=== PATIENT | male | born 1970 | race Two or more races ===

== ENCOUNTER 2016-08-25 18:37 | Emergency (ER) | payer OTHER ==
--- NOTE | ~2016-08-25 | CR72 ---
[facility] A Service of [facility] RADIOLOGY TEXT RESULTS PATIENT: ROBERTO SINGH LOCATION: [facility] : 68 UNIT #: [id number] AGE: [address]: Skip Brown MD SEX: M ORDER DR: [id number] [facility] [address] [place], [place] [address] [id number] MR#: [id number] Acc #: [id number] NAME: ROBERTO SINGH : 1970 SEX: M STUDY DATE/TIME: 08/25/2016 19:57 UNIT: [facility] ROOM: STUDY DESCRIPTION: CR Chest Single View Portable Attending Physician: Skip Brown M.D. Ordering Physician: Skip Brown M.D. Primary Care Physician: Primary Care Physician No MEDICAL IMAGING REPORT This report is preliminary unless electronic signature is present EXAM Portable AP view of the chest COMPARISON None. INDICATION 46-year-old male with chest pain and mild chest congestion for 3 days. FINDINGS Cardiomediastinal silhouette is normal. No evidence of pneumothorax, pleural effusion or acute airspace disease. IMPRESSION No acute radiographic abnormality. Dictated by... Nikolas Thompson M.D. THIS IS AN ELECTRONICALLY VERIFIED REPORT Nikolas Thompson M.D. at 08/26/2016 3:03 PM Fannie TD: 08/26/2016 00:16 JOB #: [id number] MEDICAL IMAGING REPORT Page 1 of 1 COPY
--- NOTE | ~2016-08-25 | CT71 ---
[facility] A Service of [facility] RADIOLOGY TEXT RESULTS PATIENT: ROBERTO SINGH LOCATION: [facility] : 68 UNIT #: [id number] AGE: [address]: Skip Brown MD SEX: M ORDER DR: [id number] [facility] [address] [place], [place] [address] [id number] E MR#: [id number] Acc #: [id number] NAME: ROBERTO SINGH : 1970 SEX: M STUDY DATE/TIME: 08/25/2016 20:21 UNIT: [facility] ROOM: STUDY DESCRIPTION: CT Head Wo Contrast Attending Physician: Skip Brown M.D. Ordering Physician: Skip Brown M.D. Primary Care Physician: Primary Care Physician No MEDICAL IMAGING REPORT This report is preliminary unless electronic signature is present EXAM CT brain without contrast HISTORY Seizure today. Found down. Weakness. This CT exam was performed with one or more of the following radiation dose reduction techniques: automatic exposure control, adjustment of mA and/or kV according to patient size, and iterative reconstruction. FINDINGS Axial noncontrast images were obtained from the skull base to the vertex. Ventricular size and configuration are normal. There is no evidence of acute infarct or hemorrhage. There are no extra-axial fluid collections. No mass lesion or mass effect is seen. There are no skull fractures. IMPRESSION Normal noncontrast head CT. Dictated by... Sanjeev Dillon M.D. THIS IS AN ELECTRONICALLY VERIFIED REPORT Sanjeev Dillon M.D. at 08/26/2016 11:08 PM JOSE C/gianna TD: 08/26/2016 00:02 JOB #: [id number] MEDICAL IMAGING REPORT Page 1 of 1 COPY
--- NOTE | ~2016-08-25 | EKG ---
PATIENT: ROBERTO SINGH UNIT #: [id number] Ventricular Rate: 69 BPM Atrial Rate: 69 BPM P-R Interval: 166 ms QRS Duration: 86 ms Q-T Interval: 404 ms QTC Calculation(Bezet): 432 ms P [place]: 10 degrees Calculated R [place]: 3 degrees Calculated T [place]: 24 degrees Diagnosis Line: Normal sinus rhythm Diagnosis Line: Moderate voltage criteria for LVH, may be normal Diagnosis Line: variant Diagnosis Line: Early repolarization Diagnosis Line: Borderline ECG Diagnosis Line: No previous ECGs available Diagnosis Line: Confirmed by YARY BENAVIDES MD ([id number]) on Diagnosis Line: 08/25/2016 11:00:42 PM INTERPRETING MD: MAEGAN
[2016-08-25 19:58] LABS: BASOPHIL% 0.2 % (0-2.5); EOSINOPHIL% 0.2 % (0.0-7.0); HEMATOCRIT 43.9 % (38.0-50.0); HEMOGLOBIN 14.7 gm/dL (13.0-16.0); LYMPHOCYTE# 0.6 X10e3 (1.0-3.5); LYMPHOCYTE% 6.1 % (17.0-45.0); MEAN CELL VOLUME 88.3 FL (83-96); MEAN CORPUSCULAR HEMOGLOBIN 29.4 PG (28-34); MEAN CORPUSCULAR HGB CONC 33.3 g/dL (30-36); MEAN PLATELET VOLUME 8.9 FL (6.5-11.5); MONOCYTE# 0.7 X10e3 (0-1.0); NEUTROPHIL# 8.6 X10e3 (1.5-7.1); NEUTROPHIL% 86.5 % (40-75); PLATELET COUNT 216 X10e3 (140-420); RED BLOOD COUNT 4.98 X10e (3.90-5.60); RED CELL DISTRIBUTION WIDTH 13.3 % (11.0-15.5); WHITE BLOOD COUNT 9.9 X10e3 (4.0-10.5)
[2016-08-25 19:59] LABS: DIFF IND NO
[2016-08-25 20:11] LABS: POC - CKMB 3.1 ng/mL (0.0-7.9); POC - TROPONIN <0.05 ng/mL (<=0.05)
[2016-08-25 20:20] LABS: ALBUMIN SERUM 4.6 g/dL (3.5-5.0); BILIRUBIN, DIRECT 0.1 mg/dL (0.0-0.2); BILIRUBIN,INDIRECT 0.7 mg/dL (0.0-0.9); BILIRUBIN,TOTAL 0.8 mg/dL (0.2-2.0); BUN/CREATININE RATIO 11.66; CALCIUM SERUM 9.2 mg/dL (8.4-10.2); CREATININE SERUM 1.2 mg/dL (0.6-1.4); GLOM FILT RATE Estimated 71.6 mL/min (>60); POTASSIUM 3.5 mmol/L (3.5-5.1); PROTEIN TOTAL SERUM 7.8 g/dL (6.0-8.3)
[2016-08-25 20:49] LABS: AMPHETAMINE NEG (NEG); BARBITURATES NEG (NEG); BENZODIAZEPINES NEG (NEG); COCAINE NEG (NEG); MARIJUANA NEG (NEG); OPIATES NEG (NEG); TRICYCLIC ANTIDEPRESSANTS NEG (NEG); U METHADONE NEG (NEG)
[2016-08-25 20:59] LABS: URINE SOURCE CLEAN CATCH
[2016-08-25 21:05] LABS: URINE APPEARANCE CLOUDY; URINE BILIRUBIN NEG (NEG); URINE BLOOD NEG (NEG); URINE COLOR YELLOW; URINE GLUCOSE NEG (NEG); URINE KETONE NEG (NEG); URINE LEUKOCYTE ESTERASE NEG (NEG); URINE NITRATE NEG (NEG); URINE PH 5.5 (5-8); URINE PROTEIN NEG (NEG); URINE SPECIFIC GRAVITY 1.024 (1.003-1.035); URINE UROBILINOGEN 0.2 MG/DL (NEG)
[2016-08-25 21:09] LABS: CULTURE INDICATED? NO
== END 2016-08-25 22:15 | disposition home or self-care (01) ==
LOC: CED 18:37 → CFTX 21:27 → CED 22:15
PROVIDERS: Emergency Medicine
DX: T67.5XXA Heat exhaustion, unspecified, initial encounter (principal); R55 Syncope and collapse
CPT/HCPCS: 36415; 70450; 71010; 80048; 80076; 80307; 81003; 82550; 82553; 84484; 85025; 93005; 99284; G0480; J1885